=== PATIENT | female | born 1985 | race Caucasian/White ===

== ENCOUNTER 2018-12-16 10:13 | Emergency (ER) | payer OTHER ==
[~2018-12-16] VITALS: Ht 160 cm; Wt 8.6 kg
[2018-12-16 10:19] VITALS: Ht 160 cm; Wt 8.6 kg
--- NOTE | 2018-12-16 11:42 | ERD ---
ER Documentation Chief Complaint Chief Complaint pt is bib family with c/o abd pain and vomiting since 1 am HPI 33-year-old female, presents the emergency department, complaining of abdominal pain and vomiting that started last night. The pain is colicky, intermittent, 5/10, associated with 2 episodes of postprandial, nonbloody emesis. The patient denies fevers, no chills, no urinary symptoms, no diarrhea. She also reports mild upper respiratory symptoms including runny nose and cough but no shortness of breath or chest pain. The patient has been taking Tylenol with mild improvement of the symptoms. ROS All systems reviewed and are negative except as per history of present illness. Medications Home Meds Active Scripts D-Methorphan Hb/P-Epd HCl/Bpm (Eeyldibnzx-Ivfgzympsqo-Sx Syr) 118 Ml Syrup, 5 ML PO TID PRN for COUGH, #60 ML Prov:ELIZABET MONCADA MD 12/16/18 Acetaminophen* (Tylenol*) 325 Mg Tablet, 2 TAB PO Q6 PRN for PAIN AND OR ELEVATED TEMP, #20 TAB Prov:ELIZABET MONCADA MD 12/16/18 Metoclopramide* (Reglan*) 10 Mg Tablet, 10 MG PO BID PRN for NAUSEA AND/OR VOMITING, #6 TAB Prov:ELIZABET MONCADA MD 12/16/18 Ranitidine Hcl* (Zantac*) 150 Mg Tablet, 150 MG PO BID PRN for EPIGASTRIC PAIN, #10 TAB Prov:ELIZABET MONCADA MD 12/16/18 Allergies Allergies: Coded Allergies: No Known Allergy (Unverified , 12/16/18) FmHx Family History: No diabetes, No coronary disease Physical Exam Vitals Vital Signs Date Temp Pulse Resp B/P (MAP) Pulse Ox O2 O2 Flow FiO2 Time Delivery Rate 12/16/18 98.6 72 16 119/62 100 Room Air 14:37 (81) 12/16/18 98.6 111 16 108/48 100 10:19 (68) Physical Exam Const: No acute distress Head: Atraumatic Eyes: Normal Conjunctiva ENT: Normal External Ears, Nose and Mouth. Neck: Full range of motion. No meningismus. Resp: Clear to auscultation bilaterally Cardio: Regular rate and rhythm, no murmurs Abd: Soft, diffuse tenderness to deep palpation, no peritoneal signs, non distended. Normal bowel sounds Skin: No petechiae or rashes Back: No midline or flank tenderness Ext: No cyanosis, or edema Neur: Awake and alert Psych: Normal Mood and Affect Result Diagram: 12/16/18 1156 12/16/18 1156 Results 24 hrs Laboratory Tests Test 12/16/18 11:56 12/16/18 12:11 12/16/18 12:12 White Blood Count 10.9 10^3/ul Red Blood Count 4.31 10^6/ul Hemoglobin 13.7 g/dl Hematocrit 40.7 % Mean Corpuscular Volume 94.4 fl Mean Corpuscular Hemoglobin 31.8 pg Mean Corpuscular 33.7 g/dl Hemoglobin Concent Red Cell Distribution Width 12.1 % Platelet Count 251 10^3/UL Mean Platelet Volume 11.1 fl Immature Granulocytes % 0.500 % Neutrophils % 91.3 % Lymphocytes % 2.5 % Monocytes % 5.4 % Eosinophils % 0.0 % Basophils % 0.3 % Nucleated Red Blood Cells % 0.0 /100WBC Immature Granulocytes # 0.050 10^3/ul Neutrophils # 10.0 10^3/ul Lymphocytes # 0.3 10^3/ul Monocytes # 0.6 10^3/ul Eosinophils # 0.0 10^3/ul Basophils # 0.0 10^3/ul Nucleated Red Blood Cells # 0.0 10^3/ul Sodium Level 140 mmol/L Potassium Level 4.1 mmol/L Chloride Level 107 mmol/L Carbon Dioxide Level 26 mmol/L Anion Gap 7 Blood Urea Nitrogen 12 mg/dl Creatinine 0.51 mg/dl Est Glomerular Filtrat Rate mL/min > 60 mL/min Glucose Level 113 mg/dl Calcium Level 9.6 mg/dl Total Bilirubin 0.2 mg/dl Direct Bilirubin 0.00 mg/dl Indirect Bilirubin 0.2 mg/dl Aspartate Amino Transf (AST/SGOT) 22 IU/L Alanine 22 IU/L Aminotransferase (ALT/SGPT) Alkaline Phosphatase 59 IU/L Total Protein 8.3 g/dl Albumin 4.7 g/dl Globulin 3.60 g/dl Albumin/Globulin Ratio 1.30 Lipase 71 U/L Bedside Urine pH (LAB) 6.5 Bedside Urine Protein (LAB) 1+ Bedside Urine Glucose (UA) Negative Bedside Urine Ketones (LAB) 4+ Bedside Urine Blood Negative Bedside Urine Nitrite (LAB) Negative Bedside Urine Leukocyte Esterase Negative (L POC Beta HCG, Qualitative NEGATIVE Current Medications Medications Dose Sig/Janny Start Time Status Last (Trade) Ordered Route PRN Stop Time Admin Dose Reason Admin 40 ml ONCE STAT 12/16/18 DC 12/16/18 Miscellaneous PO 11:47 12:03 Medication 12/16/18 11:50 (Gi Cocktail (2)) Ondansetron 8 mg ONCE STAT 12/16/18 DC 12/16/18 HCl (Zofran ODT 11:47 12:03 Odt) 12/16/18 11:50 Procedures/MDM Physical exam unremarkable, patient in no distress, hydrated, adequate oral intake, abdomen, soft, nontender, no peritoneal signs. Differential diagnosis include but not limited to: gastrointestinal infection bacterial/viral, UTI, appendicitis, colitis, food poisoning, food intolerance. Low suspicion for acute abdomen Physical examination and clinical presentation consistent most likely with viral gastroenteritis. During the ED course the patient remained stable, overall improvement of the symptoms after receiving treatment in the emergency department. Clinical impression discussed with the patient who agrees with management. The patient is stable to be discharged home, Some side effects of prescribed medications (headache, rash, nausea, vomiting, diarrhea, interactions with other medications) were reviewed. The patient requires a follow up with the primary care provider in the next 48h. If symptoms persist, worsen or new symptoms develop, then patient should return to the ED immediately. Disclaimer: Inadvertent spelling and grammatical errors are likely due to EHR/dictation software use and do not reflect on the overall quality of patient care. Also, please note that the electronic time recorded on this note does not necessarily reflect the actual time of the patient encounter. Departure Diagnosis: Primary Impression: Abdominal pain Additional Impression: Viral gastroenteritis Condition: Stable Additional Instructions: Muchas hailey por [facility] para christianson servicio. Esperamos que en christianson visita a la angela de emergencia christianson problema medico haya sido solucionado y que se sienta mucho mejor. Para estar seguros que christianson mejoria sigue en proceso, le pedimos el favor de hacer valeriy kip de seguimiento medico con christianson doctor primario en los proximos 2-4 galicia. Lleve con usted estos documentos y las medicinas recetadas. Si sameera sintomas empeoran, NO SE ESPERE, por favor regrese a angela de emergencia INMEDIATAMENTE. En kenna que usted no tenga un mdico de atencin primaria: Llame al mdico o clnica comunitaria de referencia que aparece abajo allyson las horas de consultorio para hacer valeriy kip para que le vean. CLINICAS: [facility] [phone] [facility] [phone] [facility] [phone] [facility] [phone] [facility] [phone] [address] [facility] [phone] ELIZABET AMBROCIO MD Dec 16, 2018 11:42
[2018-12-16] MEDS ORDERED: LIDOCAINE/MYLANTA 40 ML BTL PO STA (11:47)
[2018-12-16] MEDS ORDERED: ONDANSETRON (ODT) 4 MG TAB ODT STA (11:47)
[2018-12-16] MEDS ORDERED: METO10TA92 PO (14:25)
[2018-12-16] MEDS ORDERED: ACET325T33 PO (14:25)
[2018-12-16] MEDS ORDERED: RANI150T35 PO (14:25)
[2018-12-16 14:37] VITALS: BP 119/62; PULSE 72; RESP 16
[2018-12-16] MEDS ORDERED: D-ME118S24 PO (14:38)
== END 2018-12-16 14:39 | disposition home or self-care (01) ==
LOC: FTE 10:13
DX: A08.4 Viral intestinal infection, unspecified (principal)
CPT/HCPCS: 36415; 76705; 80053; 81003; 81025; 83690; 85025; Z7502; Z7610

== ENCOUNTER 2019-03-27 09:15 | Emergency (ER) | payer OTHER ==
[~2019-03-27] VITALS: Wt 51.0 kg
[~2019-03-27 09:15] MED LIST: ACET325T33 PO; D-ME118S24 PO; METO10TA92 PO; RANI150T35 PO
[2019-03-27 09:18] VITALS: BP 122/72; PULSE 89; RESP 18
[2019-03-27] MEDS ORDERED: KETOROLAC 30 MG INJ IM STA (10:26)
--- NOTE | 2019-03-27 10:42 | ERD ---
ER Documentation Chief Complaint Chief Complaint LOWER ABD PAIN FOR THE PAST 2 WKS. NO VAG BLEED. HX OF FIBROIDS HPI 33-year-old female with past medical history of fibroids who presents with complaint of lower abdominal pelvic pain. States she been having these issues over the past 2 weeks. Describes sharp pain extending from left to right to lower pelvic region. Recalls being seen in this ED in November of this year for similar complaints with unremarkable work-up including gallbladder ultrasound. Despite complaint of abdominal pain she denies associated fevers, chills, nausea, vomiting, diarrhea, vaginal bleeding or discharge, urinary symptoms such as frequency burning or itching. Has not taken any medications for her pain. Last menstrual period on March 20 reported as normal. At time of evaluation patient nontoxic-appearing with normal triage vital signs. ROS All systems reviewed and are negative except as per history of present illness. Medications Home Meds Active Scripts Acetaminophen* (Tylophen*) 500 Mg Capsule, 1 CAP PO Q6H PRN for PAIN AND OR ELEV ATED TEMP, #20 CAP Prov:MARIIA FIGUEREDO PA-C 03/27/19 Naproxen* (Naprosyn*) 500 Mg Tablet, 500 MG PO BID PRN for PAIN AND/OR INFLAMMATION, #30 TAB Prov:MARIIA FIGUEREDO PA-C 03/27/19 D-Methorphan Hb/P-Epd HCl/Bpm (Eulakmefgi-Oriaxlpkvug-Xa Syr) 118 Ml Syrup, 5 ML PO TID PRN for COUGH, #60 ML Prov:ELIZABET MONCADA MD 12/16/18 Acetaminophen* (Tylenol*) 325 Mg Tablet, 2 TAB PO Q6 PRN for PAIN AND OR ELEVATED TEMP, #20 TAB Prov:ELIZABET MONCADA MD 12/16/18 Metoclopramide* (Reglan*) 10 Mg Tablet, 10 MG PO BID PRN for NAUSEA AND/OR VOMITING, #6 TAB Prov:ELIZABET MONCADA MD 12/16/18 Ranitidine Hcl* (Zantac*) 150 Mg Tablet, 150 MG PO BID PRN for EPIGASTRIC PAIN, #10 TAB Prov:ELIZABET MONCADA MD 12/16/18 Allergies Allergies: Coded Allergies: No Known Allergy (Unverified , 12/16/18) PMhx/Soc Hx Miscellaneous Medical Probl: Yes (FIBROIDS) Hx Alcohol Use: No Hx Substance Use: No Hx Tobacco Use: No FmHx Family History: No diabetes, No coronary disease, No other Physical Exam Vitals Vital Signs Date Temp Pulse Resp B/P (MAP) Pulse Ox O2 O2 Flow FiO2 Time Delivery Rate 03/27/19 97.8 89 18 122/72 99 09:18 (89) Physical Exam I have reviewed the triage vital signs. Const: Well nourished, well developed, appears stated age Eyes: PERRL, no conjunctival injection HENT: NCAT, Neck supple without meningismus CV: RRR, Warm, well-perfused extremities RESP: CTAB, Unlabored respiratory effort GI: soft, tender to deep palpation hypogastric region, no rebound or guarding. Non-distended, no masses MSK: No gross deformities appreciated Skin: Warm, dry. No rashes Neuro: grossly non focal Psych: Appropriate mood and affect. Result Diagram: 03/27/19 1045 03/27/19 1045 Results 24 hrs Laboratory Tests Test 03/27/19 10:42 03/27/19 10:45 POC Beta HCG, Qualitative NEGATIVE White Blood Count 5.9 10^3/ul Red Blood Count 4.32 10^6/ul Hemoglobin 13.4 g/dl Hematocrit 40.4 % Mean Corpuscular Volume 93.5 fl Mean Corpuscular Hemoglobin 31.0 pg Mean Corpuscular Hemoglobin Concent 33.2 g/dl Red Cell Distribution Width 12.1 % Platelet Count 287 10^3/UL Mean Platelet Volume 11.4 fl Immature Granulocytes % 0.200 % Neutrophils % 62.7 % Lymphocytes % 26.7 % Monocytes % 9.2 % Eosinophils % 0.5 % Basophils % 0.7 % Nucleated Red Blood Cells % 0.0 /100WBC Immature Granulocytes # 0.010 10^3/ul Neutrophils # 3.7 10^3/ul Lymphocytes # 1.6 10^3/ul Monocytes # 0.5 10^3/ul Eosinophils # 0.0 10^3/ul Basophils # 0.0 10^3/ul Nucleated Red Blood Cells # 0.0 10^3/ul Urine Color YELLOW Urine Clarity CLOUDY Urine pH 7.0 Urine Specific [place] 1.012 Urine Ketones NEGATIVE mg/dL Urine Nitrite NEGATIVE mg/dL Urine Bilirubin NEGATIVE mg/dL Urine Urobilinogen NEGATIVE mg/dL Urine Leukocyte Esterase NEGATIVE Zoila/ul Urine Microscopic RBC 1 /HPF Urine Microscopic WBC 0 /HPF Urine Squamous Epithelial Cells MODERATE /HPF Urine Bacteria FEW /HPF Urine Hemoglobin 1+ mg/dL Urine Glucose NEGATIVE mg/dL Urine Total Protein NEGATIVE mg/dl Sodium Level 142 mmol/L Potassium Level 3.9 mmol/L Chloride Level 105 mmol/L Carbon Dioxide Level 29 mmol/L Anion Gap 8 Blood Urea Nitrogen 11 mg/dl Creatinine 0.56 mg/dl Est Glomerular Filtrat Rate mL/min > 60 mL/min Glucose Level 95 mg/dl Calcium Level 9.5 mg/dl Total Bilirubin 0.5 mg/dl Direct Bilirubin 0.00 mg/dl Indirect Bilirubin 0.5 mg/dl Aspartate Amino Transf (AST/SGOT) 21 IU/L Alanine Aminotransferase (ALT/SGPT) 12 IU/L Alkaline Phosphatase 51 IU/L Total Protein 8.3 g/dl Albumin 4.5 g/dl Globulin 3.80 g/dl Albumin/Globulin Ratio 1.18 Lipase 139 U/L Current Medications Medications Dose Sig/Janny Start Time Status Last (Trade) Ordered Route PRN Stop Time Admin Dose Reason Admin Ketorolac 30 mg ONCE STAT 03/27/19 DC 03/27/19 Tromethamine IM 10:26 03/27/19 10:46 (Toradol) 10:29 Procedures/MDM 33-year-old non female who presents with elevated pain of unclear etiology. Their evaluation has not identified a emergent etiology for the abdominal pain. Considered ectopic patient's blood test negative so unlikely. Considered causes of female-specific abdominal pain unrelated to (e.g., pelvic inflammatory disease with or without tubo- ovarian abscess, Vsrt-Hqvt-Bpgiwe, etc.). Urine POC positive. Despite positive test highly doubt ectopic given exam and pain localized to right upper quadrant with no abdominal pelvic symptoms or findings on exam. Also considered causes of abdominal pain that are not gender-specific (e.g., appendicitis, volvulus, small bowel obstruction, mesenteric adenitis, acute cholecystitis/choledocholithiasis and other biliary pathology, etc.). Patient well-appearing with normal vital signs. Laboratory testing and imaging here reviewed and normal. Patient given strict return precautions for worsening pain, inability to eat/drink, fevers (temperature over 100.4F), or other concerns. Patient instructed to follow up with their primary doctor and is agreeable; all questions were answered. Specifically, given the very benign exam, normal laboratory studies I have a very low suspicion for appendicitis, ischemic bowel, bowel perforation, or any other life threatening disease. ED course/plan: Pelvic ultrasound without acute finding Labs: Unremarkable UA unremarkable We will discharge with symptomatic treatment, patient advised to follow-up with PMD for continued care. I have discussed with the patient the level of uncertainty with undifferentiated abdominal pain and clearly explained the need to follow-up as noted on the maciej marte instructions, or return to the Emergency Department immediately if the pain worsens, develops fever, persistent and uncontrollable vomiting, or for any new symptoms or concerns. I discussed with the patient that this presentation today for abdominal pain could represent a significant risk for an acute abdominal process. Although the tests in the ED were essentially normal, there is still a possibility of a process such as appendicitis, diverticulitis, cholecystitis, ulcer, early bowel obstruction, mesenteric ischemia, kidney stone, or even kidney infection which could subsequently cause disability or . DISPOSITION PLAN: We discussed follow up with the patient's primary care doctor within 24 to 48 hours. Patient counseled regarding my diagnostic impression and care plan. Prior to discharge all questions answered. Pt agrees with treatment plan and understands strict return precautions. Precautionary instructions provided including instructions to return to the ER if not improving or for any worsening or changing symptoms or concerns. Disclaimer: Inadvertent spelling and grammatical errors are likely due to EHR/dictation software use and do not reflect on the overall quality of patient care. Also, please note that the electronic time recorded on this note does not necessarily reflect the actual time of the patient encounter. Departure Diagnosis: Primary Impression: Abdominal pain Condition: Stable Patient Instructions: Abdominal Pain Referrals: COMM[facility]ITY [facility] YOU HAVE RECEIVED A MEDICAL SCREENING EXAM AND THE RESULTS INDICATE THAT YOU DO NOT HAVE A CONDITION THAT REQUIRES URGENT TREATMENT IN THE EMERGENCY DEPARTMENT. FURTHER EVALUATION AND TREATMENT OF YOUR CONDITION CAN WAIT UNTIL YOU ARE SEEN IN YOUR DOCTORS OFFICE WITHIN THE NEXT 1-2 DAYS. IT IS YOUR RESPONSIBILITY TO MAKE AN APPOINTMENT FOR FOLOW-UP CARE. IF YOU HAVE A PRIMARY DOCTOR --you should call your primary doctor and schedule an appointment IF YOU DO NOT HAVE A PRIMARY DOCTOR YOU CAN CALL OUR PHYSICIAN REFERRAL HOTLINE AT IF YOU CAN NOT AFFORD TO SEE A PHYSICIAN YOU CAN CHOSE FROM THE FOLLOWING [facility] [address] [facility] [address] [facility] [address] [facility]. [facility] [address] [facility]. [facility] [phone] [facility]. [facility] [address] Additional Instructions: Call your primary care doctor TOMORROW for an appointment during the next 2-3 days.See the doctor sooner or return here if your condition worsens before your appointment time. MARIIA FIGUEREDO PA-C Mar 27, 2019 10:42
[2019-03-27] MEDS ORDERED: ACET500C5 PO (12:05)
[2019-03-27] MEDS ORDERED: NAPR-985 PO (12:05)
== END 2019-03-27 13:06 | disposition home or self-care (01) ==
LOC: FTE 09:15
DX: R10.30 Lower abdominal pain, unspecified (principal); R10.2 Pelvic and perineal pain
CPT/HCPCS: 76856; 80053; 81001; 81025; 83690; 85025; J1885; 36415; 96372

== ENCOUNTER 2019-06-27 11:11 | Emergency (ER) | payer OTHER ==
[~2019-06-27] VITALS: Ht 152.4 cm; Wt 47.0 kg
[~2019-06-27 11:11] MED LIST changes: +ACET500C5 PO; +NAPR-985 PO; +NITR-58 PO; +ONDA4TAB14 PO
[2019-06-27 11:34] VITALS: BP 103/60; PULSE 76; RESP 20; Ht 152.4 cm; Wt 47.0 kg
== END 2019-06-27 14:39 | disposition home or self-care (01) ==
LOC: FTE 11:11
DX: R10.2 Pelvic and perineal pain (principal); Z33.1 Pregnant state, incidental
CPT/HCPCS: 36415; 76801; 80053; 81001; 81025; 83690; 85025; Z7502